=== PATIENT | female | born 1995 | race African-American/Black ===

== ENCOUNTER 2016-11-17 00:23 | Emergency (ER) | payer OTHER ==
[~2016-11-17] VITALS: Ht 160 cm; Wt 93.0 kg
--- NOTE | 2016-11-17 02:05 | ED DYSPNEA/ASTHMA COMPLAINT ---
History of Present Illness General Chief Complaint: Wheezing/Asthma Stated Complaint: DIFF BREATHING HX ASTHMA SORE THROAT\\ Source: patient Exam Limitations: no limitations Vital Signs & Intake/Output Vital Signs & Intake/Output Vital Signs Date Time Temp Pulse Resp B/P B/P Pulse O2 O2 Flow FiO2 Mean Ox Delivery Rate 11/17 0147 98.1 101 20 131/69 99 Room Air Room Air Allergies Coded Allergies: MDX - Seafood (SEAFOOD) (SWELLING/ITCHY 11/17/16) Reconcile Medications Albuterol Sulfate (Ventolin Hfa) 90 MCG HFA.AER.AD 2 PUF INH Q4-6 PRN PRN wheezing Prednisone 20 MG TABLET 2 TAB PO QDAY asthma Triage Note: PT TO TRIAGE WITH COUGH, SORETHROAT AND WHEEZING FOR A COUPLE DAYS. PT HAS A HX OF ASTHMA BUT DOES NOT HAVE MEDS AT HOME ANY MORE. PT IS IN NO DISTRESS. PT IS 6 MONTH , DUE 03/07/17, WITH 3 MISCARRIES DENIES ABD PAIN, CONTRACTION OR VAGINAL BLEEDING Triage Nurses Notes Reviewed? yes Onset: Gradual Duration: day(s): Timing: recent history Severity: mild Activities at Onset: none Prior Episodes/Possible Cause: occasional episodes Modifying Factors: Improves With: rest. Associated Symptoms: cough, wheezing : Yes Patient currently breastfeeds: No HPI: 21 yo woman 6 weeks gestation, with normal , presents with cough, wheezing x 1-2 days. "It's a little better now." No fever, chills, sputum, chest pain. She is otherwise well. Past History Travel History Traveled to [place] past 21 day No Medical History Any Pertinent Medical History? see below for history Neurological: NONE EENT: NONE Cardiovascular: NONE Respiratory: asthma Gastrointestinal: NONE Hepatic: NONE Renal: NONE Musculoskeletal: NONE Psychiatric: NONE Endocrine: NONE Blood Disorders: anemia Surgical History Surgical History: none Psychosocial History What is your primary language Norwegian Tobacco Use: Never used ETOH Use: denies use Illicit Drug Use: denies illicit drug use Family History Hx Contributory? No Review of Systems Review of Systems Constitutional: Reports: no symptoms. EENTM: Reports: no symptoms. Respiratory: Reports: no symptoms. Cardiovascular: Reports: no symptoms. GI: Reports: no symptoms. Genitourinary: Reports: no symptoms. Musculoskeletal: Reports: no symptoms. Skin: Reports: no symptoms. Neurological/Psychological: Reports: no symptoms. Hematologic/Endocrine: Reports: no symptoms. Immunologic/Allergic: Reports: no symptoms. All Other Systems: Reviewed and Negative Physical Exam Physical Exam General Appearance: well developed/nourished, mild distress Head: atraumatic, normal appearance Eyes: Bilateral: normal appearance. Ears, Nose, Throat: normal pharynx, normal ENT inspection Neck: normal inspection, supple, full range of motion Respiratory: normal breath sounds, mild wheeze, symmetric, bilaterally Cardiovascular: regular rate/rhythm Gastrointestinal: normal bowel sounds, soft Extremities: normal inspection, normal capillary refill, normal range of motion, no edema Neurologic/Psych: no motor/sensory deficits, awake, alert, oriented x 3 Skin: intact, normal color, warm/dry Core Measures ACS in differential dx? No Severe Sepsis Present: No Septic Shock Present: No Progress Differential Diagnosis: asthma, bronchitis, vs other Plan of Care: Orders Procedure Date/time Status THROAT CULTURE W/QUICK STREP 11/17 0150 Active Current Medications Sig/Bing Start time Last Medication Dose Stop Time Status Admin Albuterol Sulfate 3 ML ONCE ONE 11/17 214 UNVr (Proventil) 11/18 215 Ipratropium [place] 2.5 ML ONCE ONE 11/17 214 UNVr (Atrovent) 11/18 215 Prednisone 40 MG ONCE ONE 11/17 214 UNVr 11/18 215 Initial ED EKG: none Departure Departure Disposition: HOME OR SELF CARE Condition: Stable Clinical Impression Primary Impression: Asthma exacerbation Referrals: SALIMA YATES,WENDI Correa (PCP/Family) Departure Forms: Customer Survey General Discharge Information Prescriptions: Current Visit Scripts Prednisone 2 TAB PO QDAY #8 TAB Albuterol Sulfate (Ventolin Hfa) 2 PUF INH Q4-6 PRN PRN wheezing #1 INHAL Comments mild exacerbation, well appearing in the ED. Pt safe for discharge and will follow up with her pmd. Critical Care Note Critical Care Note Critical Care Time: non-applicable
[2016-11-17] MEDS ORDERED: VENTOLIN HFA18 GM INH (02:06)
[2016-11-17] MEDS ORDERED: PREDNISONE20 M1 PO (02:06)
[2016-11-17 03:02] VITALS: BP 128/72
== END 2016-11-17 03:03 ==
LOC: ERH 00:23
DX: O99.511 Diseases of the respiratory system complicating pregnancy, first trimester (principal); J45.901 Unspecified asthma with (acute) exacerbation; Z3A.01 Less than 8 weeks gestation of pregnancy
CPT/HCPCS: 1263; 1395